=== PATIENT | male | born 1935 | race Caucasian/White ===

== ENCOUNTER 2017-01-23 07:45 | Observation (INO) | payer MEDICARE, BC ==
--- OUTSIDE RECORDS SUMMARY | 2017-01-23 07:50 | XMS REPORT | Continuity of Care Document ---
:1935 Demographics Phone Unavailable Preferred Language Unknown Marital Status Unknown Zoroastrianism Affiliation Unknown Race Unknown Ethnic Group Unknown Author Organization [facility] ([facility]) Address [place] [address] Phone [phone] Care Team Providers Name Role Phone Unavailable Primary Care Provider Unavailable Source Comments This disclosure is being made pursuant to the Care Everywhere program, applicable federal and state laws, and may not contain all informaitonavailable regarding this patient.[facility] ([facility]) Active Allergies and Adverse Reactions Not on File Current Medications Not on file Active Problems Not on file Social History Tobacco Use Types Packs/Day Years Used Date Never Assessed Plan of Care Health Maintenance Due Date Last Done Comments Hepatitis B Vaccine (1 of 3 - Primary Series) 1935 Tdap Vaccine 1946 Lipid Disorder Screening 1954 Td Vaccine 1954 Colonoscopy 1986 Zoster Vaccine 1996 Pneumococcal Vaccine (1 of 2 - PCV13) 2001 Influenza Vaccine: Seasonal (#1) 05/12/2016 Results from Last 3 Months Not on file
--- OUTSIDE RECORDS SUMMARY | 2017-01-23 08:19 | XMS REPORT | Continuity of Care Document ---
:1935 Demographics Phone Unavailable Preferred Language Unknown Marital Status Unknown Denominational Affiliation Unknown Race Unknown Ethnic Group Unknown Author Organization [facility] ([facility]) [place] [address] Phone [phone] Care Team Providers Name Role Phone Unavailable Primary Care Provider Unavailable Source Comments This disclosure is being made pursuant to the Care Everywhere program, applicable federal and state laws, and may not contain all informaitonavailable regarding this patient.[facility] ([facility]) Active Allergies and Adverse Reactions Not on [...]
[2017-01-23] MEDS ORDERED: METOPROLOL TARTRATE 1 MG/ML AMPUL IV ONE (08:45)
[2017-01-23] MEDS ORDERED: ENOXAPARIN SODIUM 100 MG/ML SYRG SC SCH (09:00)
[2017-01-23] MEDS: METOPROLOL TARTRATE 25 MG TABLET PO SCH ×2 (09:54→20:28)
--- NOTE | 2017-01-23 10:08 | HP ---
Chief Complaint - Chief Complaint Date of Service: 01/23/17 Time of Service: 10:02 Chief Complaint: Fast heart rate History of Present Illness: Pt. was in clinic today for routine f/u and some concerns over the fact that his diastolic BP at times was in the 90's and his HR's in the 110-120's. He has had in between times when HR has been in the 60's and DBP in the 60-70's. He has no exercise intolerance, , chest pressure, numbness or weakness, syncopal episodes, N/V or any other complaints. He has been running bases playing ball and had no issues with this at all. He did not feel bad at time of visit, but an EKG was done which showed A. flutter with RVR. With the apparently being a paroxysmal A. flutter consideration both anti-coagulation along with working on rate control medication is necessary to be done. He was not unstable, but still can see that it might take two midnights to control his HR and get him started on anti-coagulation therapy. - Patient's Past Medical History Patient History - Cardiac/Respiratory: Hyperlipidemia Patient History - Cancer: No Hx of Cancer Patient History - Surgical Procedures: No surgical history - Family History Mother Family History - Medical: Family History - Cardiac/Respiratory: No pertinent hx Family History - Cancer: No pertinent family hx Father Family History - Medical: Diabetes Type 2 Family History - Cardiac/Respiratory: History Unknown Family History - Cancer: History Unknown - Social History Living Situations: spouse Abuse History: No History of abuse Psych History: No pertinent hx Does anyone smoke in the home?: No Smoking Status: Never smoker Alcohol Use: none Drug Use: none - Immunizations Immunizations Up to Date: Yes Review Of Systems (GEN) - Review of Systems Generalized/Overall Review: Absent: Weakness, Chills, Fever, Malaise EENTM: Present: No Symptoms Reported Respiratory: Present: No Symptoms Reported Cardiac: Absent: Palpitations Abdominal: Present: No Symptoms Reported Genitourinary: Present: No Symptoms Reported Musculoskeletal: Present: No Symptoms Reported Neurological: Present: No Symptoms Reported Skin: Present: No Symptoms Reported Endocrine: Present: No Symptoms Reported Allergies/Adverse Reactions: Allergies Allergy/AdvReac Type Severity Reaction Status Date / Time No Known Allergies Allergy Verified 01/23/17 10:25 Home Medications: HOME MEDICATIONS Dabigatran Etexilate Mesylate [Pradaxa] 150 mg PO BID #60 capsule 01/24/17 [ Last Taken Unknown] Metoprolol Tartrate [Lopressor] 25 mg PO Q12H #60 tablet 01/24/17 [Last Taken Unknown] Exam - Exam Vital Signs: Vital Signs - Last Taken Temp Pulse 90 01/23/17 09:54 Resp BP 155/77 01/23/17 09:54 Pulse Ox Constitutional: Present: Alert, Oriented x3, Cooperative, No distress ENT Exam: Present: hearing grossly normal Eye Exam: bilateral eye: normal inspection, PERRL, EOMI Neck: Present: supple Respiratory: Present: lungs clear, normal breath sounds, no respiratory distress , no accessory muscle use Cardiovascular/Chest: Present: tachycardia, irregularly irregular Peripheral Pulses: carotid (R): 1+, carotid (L): 1+, radial (R): 2+, radial (L) : 2+ Abdomen: Present: soft, nontender, nondistended, no hepatospenomegaly Extremity: Present: no pedal edema, no calf tenderness Skin Exam: Present: normal color Neurologic: Present: orientation and mobility specialist II-XII nml as tested, normal mood/affect Appearance: Present: appropriate appearance, appropriate insight, neat Eye contact: Present: cooperative, normal speech Thoughts: Present: normal thought pattern, no apparent hallucination Assessment/Plan - Assessment/Plan (1) Atrial flutter with rapid ventricular response Assessment: will admit for rate control, possibly cardioversion via meds and for anti- coagulation. Pt was not symptomatic with the A. flutter with RVR, but risk of not treating it could be AMI, CHF, CVA, therefore the need for tx now and the need for IV meds didn't allow outpt treatment in our clinic. Problem: Acute (2) Hyperlipidemia Assessment: stable without meds. Problem: Acute (3) Discharge planning issues Assessment: anticipate being able to discharge within 24hrs if rate is controlled and pt. has started anti-coagulation. Problem: Acute
[2017-01-23] MEDS: DABIGATRAN ETEXILATE MESYLATE 150 MG CAPSULE PO SCH (20:29)
--- NOTE | 2017-01-24 08:23 | DS ---
(1) Atrial flutter with rapid ventricular response Problem: Acute (2) Hyperlipidemia Problem: Acute (3) Discharge planning issues Problem: Acute Description of Stay: Pt. admitted with A. flutter with RVR. He was not symptomatic, but concern was him being in this rhythm and rate for any length of time, especially at his age , could possibly cause an AMI, therefore he was admitted for rate control and anti-coagulation. He was given a dose of lovenox on admit, followed by IVP metoprolol of 5mg and then PO metoprolol 25mg bid. His rate reduced < 100, mainly in the 70-80's, 90's when ambulating, but his rhythm remained A. flutter. Pradaxa 150mg po bid was started last night and will be continued for 30 days minimum, looking to possibly cardiovert him after 30 days on Pradaxa. An outpt echo may be done, but might defer to cardiology as to what tests they might want to do along with possibly cardioverting him or not. Pt. remained asymptomatic throughout his stay. Did state at time of D/C that he takes OTC baby ASA at home and so was asked to stop this. We'll see him in f/u in 2 wks. Pt. told to keep track of BP's and HR. Procedures Performed: none Discharge Disposition: Home self care Disposition: Home self-care Condition: Good Discharge Activity: Activity as tolerated Discharge Diet: General/regular food Referrals: Figueroa Nugent MD [Primary Care Provider] - Two Weeks Prescriptions (Any new or edited meds): Dabigatran Etexilate Mesylate [Pradaxa] 150 mg PO BID #60 capsule Metoprolol Tartrate [Lopressor] 25 mg PO Q12H #60 tablet Complete Home Medications List: Complete Home Medication List: Dabigatran Etexilate Mesylate [Pradaxa] 150 mg PO BID #60 capsule 01/24/17 Metoprolol Tartrate [Lopressor] 25 mg PO Q12H #60 tablet 01/24/17
[2017-01-24] MEDS: METOPROLOL TARTRATE 25 MG TABLET PO SCH (09:09)
[2017-01-24] MEDS: DABIGATRAN ETEXILATE MESYLATE 150 MG CAPSULE PO SCH (09:09)
[2017-01-24 09:10] VITALS: BP 138/77
== END 2017-01-24 10:00 | disposition home or self-care (01) ==
LOC: RT 07:45 → INTOOBSV 08:13 → MS 08:13
PROVIDERS: ADMIT Family Medicine; ATTEND Family Medicine
DX: I48.92 Unspecified atrial flutter (principal); E78.5 Hyperlipidemia, unspecified
CPT/HCPCS: 93005; 96372; 96374; G0378